=== PATIENT | female | born 1965 | race Caucasian/White ===

== ENCOUNTER 2017-02-18 22:51 | Emergency (ER) | payer SELFPAY ==
[~2017-02-18] VITALS: Ht 165.1 cm; Wt 45.5 kg
[~2017-02-18 22:51] MED LIST: CELEXA40 MG PO; DALIRESP500 MCG PO; LEVOTHROID,S0.025 M1 PO; LIBRIUM25 MG PO; LOPRESSOR25 MG PO; MOBIC15 MG PO; PERCOCET 5/31 TABLET PO; THIAMINE HCL100 MG PO; TRAMADOL HCL50 MG PO; VENTOLIN HFA18 GM IH; VICODIN,LORT1 TABLET PO; ZOFRAN ODT4 MG PO
[2017-02-18 23:50] LABS: HEMATOCRIT 33.7 % (36.0-46.0); MCH 32.6 PG (29.0-34.0); MCHC 35.3 G/DL (30.0-36.0); MCV 92.3 FL (83-99); MEAN PLAT.VOLUME 9.2 uM^3 (9.5-12.4); PLATELET COUNT 240 K/uL (156-360); RBC DIS.WIDTH-CV 13.1 % (11.8-14.6); RBC DIS.WIDTH-SD 44.2 % (39-53); RED BLOOD COUNT 3.65 M/uL (3.80-5.20); WHITE BLOOD COUNT 9.6 K/uL (4.1-10.2)
[2017-02-18 23:54] LABS: CHLORIDE 100 mEq/L (99-109); POTASSIUM 3.6 mEq/L (3.7-5.4); SODIUM 137 mEq/L (136-147)
[2017-02-18 23:56] LABS: GLUCOSE 92 mg/dL (70-99)
[2017-02-18 23:57] LABS: ANION GAP 12 MEQ/L (2-14)
[2017-02-18 23:59] LABS: SERUM ETHYL ALCOHOL 317 mg/dL
[2017-02-19] LABS: AMPHETAMINE NEGATIVE (500 ng/mL); BARBITURATES NEGATIVE (200 ng/mL); BENZODIAZEPINES NEGATIVE (150 ng/mL); COCAINE NEGATIVE (150 ng/mL); INTERNAL CONTROLS VALID? YES; METHADONE NEGATIVE (200 ng/mL); METHAMPHETAMINE NEGATIVE (500 ng/mL); OPIATES (MORPHINE) NEGATIVE (100 ng/mL); OXYCODONE NEGATIVE (100 ng/mL); PHENCYCLIDINE NEGATIVE (25 ng/mL); PROPOXYPHENE NEGATIVE (300 ng/mL); THC CANNABINOIDS PRESUMPTIVE POSITIVE (50 ng/mL); TRICYCLIC ANTIDEPRESSANTS NEGATIVE (300 ng/mL)
[2017-02-19] LABS: GFR ESTIMATE (CALCULATED) > 59 mL/min/
[2017-02-19 00:01] LABS: ADD MEDTOX COMMENT Y
[2017-02-19 00:02] LABS: UREA NITROGEN (BUN) 8 mg/dL (9-23)
[2017-02-19 00:03] LABS: SALICYLATE < 5.0 MG/DL (15-30)
[2017-02-19 11:53] VITALS: BP 105/82
== END 2017-02-19 11:54 | disposition home or self-care (01) ==
LOC: EME 22:51
PROVIDERS: Emergency Medicine
DX: F10.129 Alcohol abuse with intoxication, unspecified (principal); Y90.8 Blood alcohol level of 240 mg/100 ml or more; F32.9 Major depressive disorder, single episode, unspecified; Z04.6 Encounter for general psychiatric examination, requested by authority; I10 Essential (primary) hypertension; F17.200 Nicotine dependence, unspecified, uncomplicated; J45.909 Unspecified asthma, uncomplicated
CPT/HCPCS: 80048; 84999; 85027; 90837; 94640; 99281; 99285; G0480; J1630

== ENCOUNTER 2017-03-04 19:41 | Emergency (ER) | payer SELFPAY ==
[~2017-03-04] VITALS: Ht 160 cm; Wt 50.0 kg
[2017-03-04 21:41] LABS: EOSINOPHIL (%) 0 % (0-5); HEMATOCRIT 34.1 % (36.0-46.0); IMMATURE GRANULOCYTE (%) 0.4 % (0.0-0.7); INSTRUMENT ABS NEUTROPHIL CT 7.4 K/uL; LYMPHOCYTE COUNT 1.9 K/uL (1.0-2.8); MCHC 34.6 G/DL (30.0-36.0); MCV 95.3 FL (83-99); MEAN PLAT.VOLUME 8.6 uM^3 (9.5-12.4); MONOCYTE (%) 6.6 % (3-12); MONOCYTE COUNT 0.7 K/uL (0-0.8); NEUTROPHIL (%) 73.5 % (45-76); NEUTROPHIL COUNT 7.4 K/uL (1.8-6.4); PLATELET COUNT 263 K/uL (156-360); RBC DIS.WIDTH-CV 13.5 % (11.8-14.6); RBC DIS.WIDTH-SD 47.8 % (39-53); RED BLOOD COUNT 3.58 M/uL (3.80-5.20); WHITE BLOOD COUNT 10.1 K/uL (4.1-10.2)
[2017-03-04 21:50] LABS: CHLORIDE 96 mEq/L (99-109); POTASSIUM 4.4 mEq/L (3.7-5.4); SODIUM 135 mEq/L (136-147)
[2017-03-04 21:51] LABS: GLUCOSE 98 mg/dL (70-99)
[2017-03-04 21:53] LABS: ANION GAP 12 MEQ/L (2-14)
[2017-03-04 21:54] LABS: SERUM ETHYL ALCOHOL 329 mg/dL
[2017-03-04 21:55] LABS: GFR ESTIMATE (CALCULATED) > 59 mL/min/
[2017-03-04 21:56] LABS: UREA NITROGEN (BUN) 11 mg/dL (9-23)
[2017-03-04 22:02] LABS: AMPHETAMINE NEGATIVE (500 ng/mL); BARBITURATES NEGATIVE (200 ng/mL); BENZODIAZEPINES NEGATIVE (150 ng/mL); COCAINE NEGATIVE (150 ng/mL); INTERNAL CONTROLS VALID? YES; METHADONE NEGATIVE (200 ng/mL); METHAMPHETAMINE NEGATIVE (500 ng/mL); OPIATES (MORPHINE) NEGATIVE (100 ng/mL); OXYCODONE NEGATIVE (100 ng/mL); PHENCYCLIDINE NEGATIVE (25 ng/mL); PROPOXYPHENE NEGATIVE (300 ng/mL); THC CANNABINOIDS NEGATIVE (50 ng/mL); TRICYCLIC ANTIDEPRESSANTS NEGATIVE (300 ng/mL)
[2017-03-04 22:11] LABS: ADD MIUA? YES; BILIRUBIN NEGATIVE; BLOOD MODERATE; COLOR YELLOW ((YELLOW)); GLUCOSE (STRIP) NEGATIVE; KETONES NEGATIVE; LEUKOCYTES LARGE; NITRITE POSITIVE; PROTEIN (STRIP) 30; SPECIFIC GRAVITY 1.004 (1.000-1.030); UROBILINOGEN 0.2 MG/DL (0.2-1.0)
[2017-03-04 22:26] LABS: BACTERIA 2+ /HPF; CASTS NONE SEEN /LPF; CRYSTALS NONE SEEN; EPITHELIAL CELLS RARE /HPF; MUCUS NONE SEEN /LPF; RED BLOOD CELLS 0-5 /HPF (0-5); WHITE BLOOD CELLS TNTC /HPF (0-5)
[2017-03-05] MEDS ORDERED: CIPRO250 MG PO (06:52)
[2017-03-05 07:10] VITALS: BP 105/73
== END 2017-03-05 07:11 | disposition home or self-care (01) ==
LOC: EME → EDBD 19:41 → EME 19:41
PROVIDERS: Emergency Medicine
DX: F32.9 Major depressive disorder, single episode, unspecified (principal); F10.129 Alcohol abuse with intoxication, unspecified; N39.0 Urinary tract infection, site not specified; Z04.1 Encounter for examination and observation following transport accident; R45.1 Restlessness and agitation; Y90.8 Blood alcohol level of 240 mg/100 ml or more; J44.9 Chronic obstructive pulmonary disease, unspecified; F17.200 Nicotine dependence, unspecified, uncomplicated
CPT/HCPCS: 70450; 80048; 81003; 85025; 99281; 99284; G0480; J1630; J2060

== ENCOUNTER 2017-03-09 19:42 | Emergency (ER) | payer SELFPAY ==
[~2017-03-09] VITALS: Ht 162.6 cm; Wt 49.0 kg
[~2017-03-09 19:42] MED LIST changes: +CIPRO250 MG PO
[2017-03-09 21:26] LABS: HEMATOCRIT 35.2 % (36.0-46.0); MCH 33.3 PG (29.0-34.0); MCHC 34.9 G/DL (30.0-36.0); MCV 95.4 FL (83-99); MEAN PLAT.VOLUME 8.9 uM^3 (9.5-12.4); PLATELET COUNT 270 K/uL (156-360); RBC DIS.WIDTH-CV 13.7 % (11.8-14.6); RBC DIS.WIDTH-SD 48.1 % (39-53); RED BLOOD COUNT 3.69 M/uL (3.80-5.20); WHITE BLOOD COUNT 9.3 K/uL (4.1-10.2)
[2017-03-09 21:27] LABS: ADD MIUA? NO; BILIRUBIN NEGATIVE; BLOOD NEGATIVE; COLOR STRAW ((YELLOW)); GLUCOSE (STRIP) NEGATIVE; KETONES NEGATIVE; LEUKOCYTES NEGATIVE; NITRITE NEGATIVE; PROTEIN (STRIP) NEGATIVE; SPECIFIC GRAVITY 1.004 (1.000-1.030); UROBILINOGEN 0.2 MG/DL (0.2-1.0)
[2017-03-09 21:33] LABS: AMPHETAMINE NEGATIVE (500 ng/mL); BARBITURATES NEGATIVE (200 ng/mL); BENZODIAZEPINES NEGATIVE (150 ng/mL); COCAINE NEGATIVE (150 ng/mL); METHADONE NEGATIVE (200 ng/mL); METHAMPHETAMINE NEGATIVE (500 ng/mL); OPIATES (MORPHINE) NEGATIVE (100 ng/mL); OXYCODONE NEGATIVE (100 ng/mL); PHENCYCLIDINE NEGATIVE (25 ng/mL); PROPOXYPHENE NEGATIVE (300 ng/mL); THC CANNABINOIDS PRESUMPTIVE POSITIVE (50 ng/mL); TRICYCLIC ANTIDEPRESSANTS NEGATIVE (300 ng/mL)
[2017-03-09 21:34] LABS: ADD MEDTOX COMMENT Y; INTERNAL CONTROLS VALID? YES
[2017-03-09 21:37] LABS: CHLORIDE 98 mEq/L (99-109); POTASSIUM 4.9 mEq/L (3.7-5.4); SODIUM 137 mEq/L (136-147)
[2017-03-09 21:39] LABS: GLUCOSE 97 mg/dL (70-99)
[2017-03-09 21:40] LABS: ANION GAP 12 MEQ/L (2-14)
[2017-03-09 21:41] LABS: TOTAL BILIRUBIN 0.3 mg/dL (0.0-1.0)
[2017-03-09 21:42] LABS: ALKALINE PHOSPHATASE 104 IU/L (3-129); SERUM ETHYL ALCOHOL 331 mg/dL
[2017-03-09 21:43] LABS: GFR ESTIMATE (CALCULATED) > 59 mL/min/
[2017-03-09 21:44] LABS: UREA NITROGEN (BUN) 5 mg/dL (9-23)
[2017-03-09 23:10] VITALS: BP 121/81
== END 2017-03-09 23:26 ==
LOC: EME 19:42
PROVIDERS: Emergency Medicine
DX: F10.129 Alcohol abuse with intoxication, unspecified (principal); Y90.8 Blood alcohol level of 240 mg/100 ml or more; F12.90 Cannabis use, unspecified, uncomplicated; J45.909 Unspecified asthma, uncomplicated; F17.200 Nicotine dependence, unspecified, uncomplicated
CPT/HCPCS: 80053; 81003; 84999; 85027; 99281; 99285; G0480

== ENCOUNTER 2017-03-13 00:23 | Emergency (ER) | payer SELFPAY ==
[~2017-03-13] VITALS: Ht 165.1 cm; Wt 43.6 kg
[2017-03-13 01:18] LABS: HEMATOCRIT 36.5 % (36.0-46.0); MCH 33.5 PG (29.0-34.0); MCHC 35.3 G/DL (30.0-36.0); MCV 94.8 FL (83-99); PLATELET COUNT 256 K/uL (156-360); RBC DIS.WIDTH-CV 14.6 % (11.8-14.6); RBC DIS.WIDTH-SD 50.4 % (39-53); RED BLOOD COUNT 3.85 M/uL (3.80-5.20)
[2017-03-13 01:26] LABS: CHLORIDE 102 mEq/L (99-109); POTASSIUM 4.1 mEq/L (3.7-5.4); SODIUM 143 mEq/L (136-147)
[2017-03-13 01:28] LABS: GLUCOSE 97 mg/dL (70-99)
[2017-03-13 01:29] LABS: ANION GAP 14 MEQ/L (2-14)
[2017-03-13 01:31] LABS: SERUM ETHYL ALCOHOL 434 mg/dL
[2017-03-13 01:32] LABS: GFR ESTIMATE (CALCULATED) > 59 mL/min/; TOTAL BILIRUBIN 0.4 mg/dL (0.0-1.0)
[2017-03-13 01:33] LABS: ALKALINE PHOSPHATASE 94 IU/L (3-129)
[2017-03-13 01:34] LABS: UREA NITROGEN (BUN) 5 mg/dL (9-23)
[2017-03-13 01:35] LABS: SALICYLATE < 5.0 MG/DL (15-30)
[2017-03-13 01:37] LABS: ADD MIUA? YES; BILIRUBIN NEGATIVE; BLOOD SMALL; COLOR YELLOW ((YELLOW)); GLUCOSE (STRIP) NEGATIVE; KETONES NEGATIVE; LEUKOCYTES NEGATIVE; NITRITE NEGATIVE; PROTEIN (STRIP) NEGATIVE; SPECIFIC GRAVITY 1.005 (1.000-1.030); UROBILINOGEN 0.2 MG/DL (0.2-1.0)
[2017-03-13 01:39] LABS: BACTERIA RARE /HPF; EPITHELIAL CELLS RARE /HPF; MUCUS NONE SEEN /LPF; RED BLOOD CELLS 0-5 /HPF (0-5); WHITE BLOOD CELLS 0-5 /HPF (0-5)
[2017-03-13 01:45] LABS: ADD MEDTOX COMMENT Y; AMPHETAMINE NEGATIVE (500 ng/mL); BARBITURATES NEGATIVE (200 ng/mL); BENZODIAZEPINES NEGATIVE (150 ng/mL); COCAINE NEGATIVE (150 ng/mL); INTERNAL CONTROLS VALID? YES; METHADONE NEGATIVE (200 ng/mL); METHAMPHETAMINE NEGATIVE (500 ng/mL); OPIATES (MORPHINE) NEGATIVE (100 ng/mL); OXYCODONE NEGATIVE (100 ng/mL); PHENCYCLIDINE NEGATIVE (25 ng/mL); PROPOXYPHENE NEGATIVE (300 ng/mL); THC CANNABINOIDS PRESUMPTIVE POSITIVE (50 ng/mL); TRICYCLIC ANTIDEPRESSANTS NEGATIVE (300 ng/mL)
[2017-03-13 15:54] VITALS: BP 110/76
== END 2017-03-13 15:54 | disposition home or self-care (01) ==
LOC: EME 00:23
PROVIDERS: Emergency Medicine
DX: F10.129 Alcohol abuse with intoxication, unspecified (principal); R45.1 Restlessness and agitation; R45.851 Suicidal ideations; F19.10 Other psychoactive substance abuse, uncomplicated; Y90.8 Blood alcohol level of 240 mg/100 ml or more; F32.9 Major depressive disorder, single episode, unspecified; S70.02XA Contusion of left hip, initial encounter; W19.XXXA Unspecified fall, initial encounter; J45.909 Unspecified asthma, uncomplicated; I10 Essential (primary) hypertension; F17.200 Nicotine dependence, unspecified, uncomplicated
CPT/HCPCS: 73502; 80053; 81003; 84999; 85027; 90839; 94640; G0480; J1630; J2060

== ENCOUNTER 2017-03-20 17:36 | Emergency (ER) | payer SELFPAY ==
[~2017-03-20] VITALS: Ht 165.1 cm; Wt 48.6 kg
[2017-03-20 22:18] VITALS: BP 100/67
== END 2017-03-20 22:24 | disposition home or self-care (01) ==
LOC: EME 17:36
DX: F10.129 Alcohol abuse with intoxication, unspecified (principal); J44.9 Chronic obstructive pulmonary disease, unspecified; F17.200 Nicotine dependence, unspecified, uncomplicated; I10 Essential (primary) hypertension; F31.9 Bipolar disorder, unspecified
CPT/HCPCS: 94640; 99281; 99284; J2060

== ENCOUNTER → 2017-08-25 | Outpatient (CLI) | payer OTHER ==
[~2017-08-25] VITALS: Ht 165.1 cm; Wt 56.2 kg
[~2017-08-25] MED LIST changes: +BENEFIBER236 GM PO; +DULERA 200 MCG/13 GM IH; +LEXAPRO20 MG PO; +NEURONTIN300 MG PO; +NYSTATIN100000 UN1 PO; +PEG 3350 ELEC4000 ML PO; +PREDNISONE10 M1 PO; +SINGULAIR10 MG PO; +SPIRIVA RESPIMAT4 GM IH; +TRAZODONE HCL50 MG PO; +VITAMIN B-1100 MG PO; +ZITHROMAX Z-PA250 MG PO
[2017-08-25 13:04] LABS: HEMATOCRIT 36.3 % (36.0-46.0); HEMOGLOBIN 12.9 G/DL (11.9-15.5); MCV 91.4 FL (83-99)
== END | disposition home or self-care (01) ==
LOC: AMB 12:30
PROVIDERS: Anesthesiology
PROC: 0DBC8ZX Excision of Ileocecal Valve, Via Natural or Artificial Opening Endoscopic, Diagnostic (ICD-10-PCS; principal; 2017-08-25)
PROC: 0DBH8ZX Excision of Cecum, Via Natural or Artificial Opening Endoscopic, Diagnostic (ICD-10-PCS; principal; 2017-08-25)
DX: Z12.11 Encounter for screening for malignant neoplasm of colon (principal); D12.0 Benign neoplasm of cecum; K38.8 Other specified diseases of appendix; K64.8 Other hemorrhoids; K59.09 Other constipation; F17.200 Nicotine dependence, unspecified, uncomplicated
CPT/HCPCS: 85014; 85018; 88305; J2250

== ENCOUNTER 2017-08-29 20:40 | Emergency (ER) | payer OTHER ==
[~2017-08-29] VITALS: Ht 165.1 cm; Wt 54.2 kg
[~2017-08-29 20:40] MED LIST changes: -NYSTATIN100000 UN1 PO; -PREDNISONE10 M1 PO; -VITAMIN B-1100 MG PO; -ZITHROMAX Z-PA250 MG PO
[2017-08-29 21:13] LABS: HEMATOCRIT 36.5 % (36.0-46.0); HEMOGLOBIN 12.9 G/DL (11.9-15.5); MCH 31.9 PG (29.0-34.0); MCHC 35.3 G/DL (30.0-36.0); MCV 90.3 FL (83-99); PLATELET COUNT 280 K/uL (156-360); RBC DIS.WIDTH-CV 12.4 % (11.8-14.6); RBC DIS.WIDTH-SD 40.7 % (39-53); RED BLOOD COUNT 4.04 M/uL (3.80-5.20); WHITE BLOOD COUNT 10.1 K/uL (4.1-10.2)
[2017-08-29 21:24] LABS: CHLORIDE 101 mEq/L (99-109); POTASSIUM 3.8 mEq/L (3.7-5.4); SODIUM 138 mEq/L (136-147)
[2017-08-29 21:25] LABS: GLUCOSE 102 mg/dL (70-99)
[2017-08-29 21:29] LABS: CREATININE 0.7 mg/dL (0.6-1.3); GFR ESTIMATE (CALCULATED) > 59 mL/min/
[2017-08-29 21:30] LABS: UREA NITROGEN (BUN) 12 mg/dL (9-23)
[2017-08-30] MEDS ORDERED: PREDNISONE10 M1 PO (00:43)
[2017-08-30] MEDS ORDERED: LIBRIUM25 MG PO (00:43)
[2017-08-30] MEDS ORDERED: NYSTATIN100000 UN1 PO (00:43)
[2017-08-30] MEDS ORDERED: ZITHROMAX Z-PA250 MG PO (00:43)
[2017-08-30] MEDS ORDERED: VITAMIN B-1100 MG PO (00:43)
[2017-08-30 01:18] VITALS: BP 126/78
== END 2017-08-30 01:20 | disposition home or self-care (01) ==
LOC: EME 20:40
DX: J44.1 Chronic obstructive pulmonary disease with (acute) exacerbation (principal); F10.10 Alcohol abuse, uncomplicated; B37.0 Candidal stomatitis; I10 Essential (primary) hypertension; M19.90 Unspecified osteoarthritis, unspecified site; F17.200 Nicotine dependence, unspecified, uncomplicated; Z87.19 Personal history of other diseases of the digestive system; Z91.030 Bee allergy status
CPT/HCPCS: 71046; 80048; 85027; 94640; 99281; 99283

== ENCOUNTER 2017-09-28 00:15 | Inpatient (IN) | payer OTHER ==
[~2017-09-28] VITALS: Ht 165.1 cm; Wt 53.0 kg
[~2017-09-28 00:15] MED LIST changes: +DULOXETINE HCL40 MG PO; +NYSTATIN100000 UN1 PO; +PREDNISONE10 M1 PO; +SYMBICORT60 INHALA1 IH; +VITAMIN B-1100 MG PO; +ZITHROMAX Z-PA250 MG PO
[2017-09-28 00:55] LABS: BASE EXCESS -3.3 mEq/L (-3 to +3); BICARBONATE 23.6 mEq/L (22-26); CARBOXY HGB 4.6 % (0-5); COMMENTS - BLOOD GASES C+A+; DEVICE NC; METHEMOGLOBIN 0.9 % (0-1.5); O2 FLOW 2 L/MIN; PCO2 49 mm Hg (35-45); PO2 70 mm Hg (80-100); SITE RR; pH 7.29 (7.35-7.45)
[2017-09-28 00:56] LABS: TOTAL RESP RATE 15 resp/min
[2017-09-28 01:13] LABS: BASOPHIL (%) 0.3 % (0-1); EOSINOPHIL (%) 0 % (0-5); HEMATOCRIT 36.9 % (36.0-46.0); HEMOGLOBIN 12.8 G/DL (11.9-15.5); IMMATURE GRANULOCYTE (%) 0.4 % (0.0-0.7); LYMPHOCYTE (%) 10.8 % (15-42); LYMPHOCYTE COUNT 1.1 K/uL (1.0-2.8); MCH 31.9 PG (29.0-34.0); MCHC 34.7 G/DL (30.0-36.0); MONOCYTE (%) 8.3 % (3-12); MONOCYTE COUNT 0.8 K/uL (0-0.8); NEUTROPHIL (%) 80.2 % (45-76); NEUTROPHIL COUNT 7.9 K/uL (1.8-6.4); PLATELET COUNT 269 K/uL (156-360); RBC DIS.WIDTH-CV 13.1 % (11.8-14.6); RBC DIS.WIDTH-SD 44.5 % (39-53); RED BLOOD COUNT 4.01 M/uL (3.80-5.20); WHITE BLOOD COUNT 9.8 K/uL (4.1-10.2)
[2017-09-28 01:22] LABS: ALBUMIN 4.4 g/dL (3.2-4.8); CHLORIDE 97 mEq/L (99-109); POTASSIUM 3.8 mEq/L (3.7-5.4); SODIUM 132 mEq/L (136-147)
[2017-09-28 01:24] LABS: GLUCOSE 128 mg/dL (70-99); TOTAL PROTEIN 6.9 g/dL (6.4-8.3)
[2017-09-28 01:26] LABS: TOTAL BILIRUBIN 0.2 mg/dL (0.0-1.0)
[2017-09-28 01:27] LABS: SERUM ETHYL ALCOHOL 331 mg/dL
[2017-09-28 01:28] LABS: ALKALINE PHOSPHATASE 101 IU/L (3-129); CREATININE 0.7 mg/dL (0.6-1.3); GFR ESTIMATE (CALCULATED) > 59 mL/min/
[2017-09-28 01:29] LABS: AST (GOT) 172 IU/L (2-34)
[2017-09-28 01:30] LABS: UREA NITROGEN (BUN) 14 mg/dL (9-23)
[2017-09-28 01:31] LABS: SALICYLATE < 5.0 MG/DL (15-30)
[2017-09-28 01:32] LABS: ACETAMINOPHEN (TYLENOL) < 10 mcg/mL (10-30); ALT (GPT) 52 IU/L (3-49)
[2017-09-28 01:41] LABS: CK-MB 202.2 ng/mL (0.0-4.9)
[2017-09-28 01:44] LABS: CKMB RELATIVE INDEX 2.3 (0.0-3.9); CREATINE KINASE 8610 IU/L (1-294); TOTAL CK 8610 IU/L (1-294)
[2017-09-28 02:40] LABS: APPEARANCE CLEAR ((CLEAR)); BILIRUBIN NEGATIVE; BLOOD LARGE; COLOR YELLOW ((YELLOW)); GLUCOSE (STRIP) NEGATIVE; KETONES NEGATIVE; LEUKOCYTES NEGATIVE; NITRITE NEGATIVE; PROTEIN (STRIP) 30; UROBILINOGEN 0.2 MG/DL (0.2-1.0)
[2017-09-28 02:52] LABS: BACTERIA RARE /HPF; EPITHELIAL CELLS NONE SEEN /HPF; HYALINE CASTS 15-20 /LPF; MUCUS TRACE /LPF; RED BLOOD CELLS 0-5 /HPF (0-5); UCUL ADDED? YES
[2017-09-28 03:23] LABS: AMPHETAMINE NEGATIVE (500 ng/mL); BARBITURATES NEGATIVE (200 ng/mL); BENZODIAZEPINES PRESUMPTIVE POSITIVE (150 ng/mL); BUPRENORPHINE NEGATIVE (10 ng/mL); COCAINE PRESUMPTIVE POSITIVE (150 ng/mL); METHADONE NEGATIVE (200 ng/mL); METHAMPHETAMINE NEGATIVE (500 ng/mL); OPIATES (MORPHINE) PRESUMPTIVE POSITIVE (100 ng/mL); OXYCODONE NEGATIVE (100 ng/mL); PHENCYCLIDINE NEGATIVE (25 ng/mL); PROPOXYPHENE NEGATIVE (300 ng/mL); THC CANNABINOIDS NEGATIVE (50 ng/mL); TRICYCLIC ANTIDEPRESSANTS NEGATIVE (300 ng/mL)
[2017-09-28 04:21] LABS: BENZODIAZEPINES, URINE SCREEN Negative (200 ng/mL)
[2017-09-28 05:27] LABS: MAGNESIUM 2.3 mg/dL (1.3-2.7)
[2017-09-28 05:45] VITALS: BP 100/63
[2017-09-28 07:27] VITALS: BP 95/54
[2017-09-28 10:47] LABS: ALBUMIN 3.7 G/DL (3.2-4.8); ALKALINE PHOSPHATASE 77 IU/L (3-129); CREATININE 0.5 MG/DL (0.6-1.3); GFR ESTIMATE (CALCULATED) > 59 mL/min/; POTASSIUM 4.5 MEQ/L (3.7-5.4); TOTAL PROTEIN 5.7 G/DL (6.4-8.3); UREA NITROGEN (BUN) 8 mg/dL (9-23)
[2017-09-28 10:48] LABS: ALT (GPT) 49 IU/L (3-49); AST (GOT) 162 IU/L (2-34); CHLORIDE 108 MEQ/L (99-109); GLUCOSE 73 mg/dL (70-99); SODIUM 141 MEQ/L (136-147); TOTAL BILIRUBIN 0.3 MG/DL (0.0-1.0)
[2017-09-28 10:49] LABS: CREATINE KINASE 7337 IU/L (1-294)
[2017-09-28 11:10] VITALS: BP 102/62
[2017-09-28 12:13] LABS: TROP-I INTERPRETATION NEGATIVE; TROPONIN-I 0.09 ng/mL (0.0-0.30)
[2017-09-28 16:37] VITALS: BP 132/84
[2017-09-28 20:56] LABS: CHLORIDE 102 MEQ/L (99-109); CREATININE 0.5 MG/DL (0.6-1.3); GFR ESTIMATE (CALCULATED) > 59 mL/min/; MAGNESIUM 2.1 mg/dl (1.3-2.7); PHOSPHORUS 1.9 mg/dL (2.5-4.9); UREA NITROGEN (BUN) 10 mg/dL (9-23)
[2017-09-28 21:02] LABS: CREATINE KINASE 8691 IU/L (1-294); GLUCOSE 151 mg/dL (70-99); SODIUM 132 MEQ/L (136-147)
[2017-09-29 01:05] LABS: TROP-I INTERPRETATION NEGATIVE; TROPONIN-I 0.04 ng/mL (0.0-0.30)
[2017-09-29 04:06] VITALS: BP 129/78
[2017-09-29 06:22] LABS: HEMATOCRIT 30.6 % (36.0-46.0); MCH 31.9 PG (29.0-34.0); MCHC 34.6 G/DL (30.0-36.0); MCV 92.2 FL (83-99); PLATELET COUNT 233 K/uL (156-360); RBC DIS.WIDTH-CV 13.3 % (11.8-14.6); RBC DIS.WIDTH-SD 44.9 % (39-53); RED BLOOD COUNT 3.32 M/uL (3.80-5.20); WHITE BLOOD COUNT 5.5 K/uL (4.1-10.2)
[2017-09-29 06:25] LABS: HEMOGLOBIN 10.6 G/DL (11.9-15.5)
[2017-09-29 06:36] LABS: ALBUMIN 3.6 G/DL (3.2-4.8); ALKALINE PHOSPHATASE 71 IU/L (3-129); ALT (GPT) 54 IU/L (3-49); AST (GOT) 155 IU/L (2-34); CHLORIDE 104 MEQ/L (99-109); CREATININE 0.5 MG/DL (0.6-1.3); GFR ESTIMATE (CALCULATED) > 59 mL/min/; GLUCOSE 132 mg/dL (70-99); POTASSIUM 3.9 MEQ/L (3.7-5.4); SODIUM 136 MEQ/L (136-147); TOTAL PROTEIN 5.3 G/DL (6.4-8.3); UREA NITROGEN (BUN) 7 mg/dL (9-23)
[2017-09-29 06:38] LABS: TOTAL BILIRUBIN 0.5 MG/DL (0.0-1.0)
[2017-09-29 07:59] VITALS: BP 129/69
[2017-09-29 10:42] LABS: TROP-I INTERPRETATION NEGATIVE; TROPONIN-I 0.03 ng/mL (0.0-0.30)
[2017-09-29 11:09] LABS: CREATINE KINASE 4763 IU/L (1-294)
[2017-09-29 11:16] LABS: TOTAL CK 4100 IU/L (1-294)
[2017-09-29 11:18] LABS: CREATINE KINASE 4100 IU/L (1-294)
[2017-09-29 11:57] LABS: CK-MB 40.4 ng/mL (0.0-4.9)
[2017-09-29 16:54] VITALS: BP 165/74
[2017-09-30 07:20] VITALS: BP 152/82
[2017-09-30 13:21] LABS: ALBUMIN 3.5 G/DL (3.2-4.8); ALKALINE PHOSPHATASE 62 IU/L (3-129); ALT (GPT) 66 IU/L (3-49); AST (GOT) 92 IU/L (2-34); CHLORIDE 109 MEQ/L (99-109); CREATININE 0.5 MG/DL (0.6-1.3); DIRECT BILIRUBIN 0.1 mg/dL (0.0-0.3); GFR ESTIMATE (CALCULATED) > 59 mL/min/; GLUCOSE 132 mg/dL (70-99); POTASSIUM 3.9 MEQ/L (3.7-5.4); SODIUM 141 MEQ/L (136-147); TOTAL BILIRUBIN 0.4 MG/DL (0.0-1.0); TOTAL PROTEIN 5.2 G/DL (6.4-8.3); UREA NITROGEN (BUN) 6 mg/dL (9-23)
[2017-09-30 13:24] LABS: CREATINE KINASE 1381 IU/L (1-294)
[2017-09-30 15:00] VITALS: BP 137/86
[2017-09-30 15:20] VITALS: BP 104/75
[2017-09-30 23:08] VITALS: BP 163/79
[2017-10-01 06:41] LABS: ALBUMIN 3.5 G/DL (3.2-4.8); ALKALINE PHOSPHATASE 59 IU/L (3-129); ALT (GPT) 68 IU/L (3-49); AST (GOT) 68 IU/L (2-34); CHLORIDE 108 MEQ/L (99-109); CREATINE KINASE 770 IU/L (1-294); CREATININE 0.7 MG/DL (0.6-1.3); GFR ESTIMATE (CALCULATED) > 59 mL/min/; GLUCOSE 100 mg/dL (70-99); POTASSIUM 3.5 MEQ/L (3.7-5.4); SODIUM 140 MEQ/L (136-147); TOTAL PROTEIN 5.6 G/DL (6.4-8.3); UREA NITROGEN (BUN) 8 mg/dL (9-23)
[2017-10-01 06:44] LABS: TOTAL BILIRUBIN 0.3 MG/DL (0.0-1.0)
[2017-10-01 06:50] VITALS: BP 160/88
[2017-10-01 15:59] VITALS: BP 176/90
[2017-10-01 23:22] VITALS: BP 151/78
[2017-10-02 05:45] LABS: BASOPHIL (%) 0.2 % (0-1); EOSINOPHIL (%) 0.1 % (0-5); HEMATOCRIT 31.6 % (36.0-46.0); LYMPHOCYTE (%) 23.6 % (15-42); LYMPHOCYTE COUNT 2.5 K/uL (1.0-2.8); MCH 32.3 PG (29.0-34.0); MCHC 34.8 G/DL (30.0-36.0); MCV 92.7 FL (83-99); MONOCYTE (%) 6.6 % (3-12); MONOCYTE COUNT 0.7 K/uL (0-0.8); NEUTROPHIL (%) 68.5 % (45-76); NEUTROPHIL COUNT 7.2 K/uL (1.8-6.4); PLATELET COUNT 272 K/uL (156-360); RBC DIS.WIDTH-CV 13.7 % (11.8-14.6); RBC DIS.WIDTH-SD 46.6 % (39-53); RED BLOOD COUNT 3.41 M/uL (3.80-5.20); WHITE BLOOD COUNT 10.5 K/uL (4.1-10.2)
[2017-10-02 06:08] LABS: ALBUMIN 3.2 G/DL (3.2-4.8); ALKALINE PHOSPHATASE 55 IU/L (3-129); ALT (GPT) 50 IU/L (3-49); AST (GOT) 32 IU/L (2-34); CHLORIDE 105 MEQ/L (99-109); CREATINE KINASE 289 IU/L (1-294); CREATININE 0.6 MG/DL (0.6-1.3); GFR ESTIMATE (CALCULATED) > 59 mL/min/; GLUCOSE 110 mg/dL (70-99); POTASSIUM 3.6 MEQ/L (3.7-5.4); SODIUM 140 MEQ/L (136-147); TOTAL BILIRUBIN 0.3 MG/DL (0.0-1.0); TOTAL PROTEIN 5.2 G/DL (6.4-8.3); UREA NITROGEN (BUN) 8 mg/dL (9-23)
[2017-10-02 07:47] VITALS: BP 158/73
[2017-10-02] MEDS ORDERED: CHLORDIAZEPOXID25 MG PO (12:24)
[2017-10-02] MEDS ORDERED: ARIPIPRAZOLE5 MG PO (12:24)
[2017-10-02] MEDS ORDERED: PREDNISONE10 MG PO (12:24)
[2017-10-02] MEDS ORDERED: NEURONTIN300 MG PO (13:22)
[2017-10-02] MEDS ORDERED: MOBIC15 MG PO (13:22)
[2017-10-02] MEDS ORDERED: TRAZODONE HCL50 MG PO (13:22)
[2017-10-02] MEDS ORDERED: LEXAPRO20 MG PO (13:22)
[2017-10-02 14:59] VITALS: BP 125/69
== END 2017-10-02 17:37 | disposition home or self-care (01) | DRG 191 ==
LOC: EME → EDBD 00:15 → EDOF 04:04 → 5EAST 04:04 → ENRESERV 04:05 → 5EAST 05:35
PROVIDERS: Emergency Medicine; Family Medicine; Hospitalist; Internal Medicine; Physician Assistant; Student in an Organized Health Care Education/Training Program
DX: J44.1 Chronic obstructive pulmonary disease with (acute) exacerbation (principal); M62.82 Rhabdomyolysis; F10.229 Alcohol dependence with intoxication, unspecified; F14.129 Cocaine abuse with intoxication, unspecified; E87.2 Acidosis; I10 Essential (primary) hypertension; Y90.8 Blood alcohol level of 240 mg/100 ml or more; F41.8 Other specified anxiety disorders; F17.200 Nicotine dependence, unspecified, uncomplicated; E87.6 Hypokalemia; R09.02 Hypoxemia; R49.0 Dysphonia
CPT/HCPCS: 36600; 70450; 71045; 80048; 80048 91; 80053; 80076; 81003; 82550; 82550 91; 82553; 82803; 82948; 83735; 84100; 84484; 84999; 85025; 85027; 87040; 87086; 93005; 94640; 94640 76; 94799; 99202; 99281; 99285; G0480; J0456; J1644; J2060; J2310; J2405; J2930; J3411; J7030; J7512

== ENCOUNTER → 2017-12-13 | Outpatient (CLI) | payer OTHER ==
[~2017-12-13] MED LIST changes: +ABILIFY5 MG PO; +ARIPIPRAZOLE5 MG PO; +BENEFIBER152 GM PO; +BENZONATATE100 MG PO; +CHLORDIAZEPOXID25 MG PO; +DESYREL 150 MG150 MG PO; +PREDNISONE10 MG PO; +PROZAC40 MG PO
[2017-12-13 08:25] LABS: HEMATOCRIT 36.2 % (36.0-46.0); HEMOGLOBIN 12.7 G/DL (11.9-15.5); MCH 32.8 PG (29.0-34.0); MCHC 35.1 G/DL (30.0-36.0); MCV 93.5 FL (83-99); PLATELET COUNT 320 K/uL (156-360); RBC DIS.WIDTH-CV 13.8 % (11.8-14.6); RED BLOOD COUNT 3.87 M/uL (3.80-5.20); WHITE BLOOD COUNT 9.8 K/uL (4.1-10.2)
[2017-12-13 08:32] LABS: INTER. NORMALIZED RATIO 0.9
[2017-12-13 08:34] LABS: PTT 29.3 SEC (25-37)
== END | disposition home or self-care (01) ==
LOC: OPR 07:42 → EDSTATUS 08:00 → OPR 08:00
PROVIDERS: Internal Medicine
PROC: 0DBU3ZX Excision of Omentum, Percutaneous Approach, Diagnostic (ICD-10-PCS; principal; 2017-12-13)
DX: R19.04 Left lower quadrant abdominal swelling, mass and lump (principal); F17.200 Nicotine dependence, unspecified, uncomplicated
CPT/HCPCS: 77012; 85027; 85610; 85730; 88305; 88341 TC; 88342 TC; J3010